=== PATIENT | female | born 1955 | race Caucasian/White ===

== ENCOUNTER 2017-08-30 21:01 | Emergency (ER) | payer OTHER, SELFPAY ==
[2017-08-30 21:02] VITALS: BP 101/52; PULSE 215; RESP 16; TEMP 36.5; O2SAT 93; BMI 27.9
[2017-08-30] MEDS: Adenosine 6 MG/2 ML Syringe IV (21:15)
[2017-08-30 21:17] VITALS: BP 115/61; PULSE 91; RESP 13; O2SAT 97
--- NOTE | 2017-08-30 21:26 | EKG12_ITS ---
Test Reason : CP Blood Pressure : / mmHG Vent. Rate : 188 BPM Atrial Rate : 208 BPM P-R Int : 000 ms QRS Dur : 096 ms QT Int : 234 ms P-R-T Axes : 000 -08 106 degrees QTc Int : 414 ms Supraventricular tachycardia Marked ST abnormality, possible lateral subendocardial injury Abnormal ECG Confirmed by LAST TORRES, CARLOS ([id number]), graphics editor ALESSIO SPEAR ([id number]) on 09/02/2017 3:49:44 PM Referred By: LALO Confirmed By:CARLOS NI MD
--- NOTE | 2017-08-30 21:27 | EKG12_ITS ---
Test Reason : CP Blood Pressure : / mmHG Vent. Rate : 083 BPM Atrial Rate : 083 BPM P-R Int : 146 ms QRS Dur : 084 ms QT Int : 378 ms P-R-T Axes : 064 -12 032 degrees QTc Int : 444 ms Normal sinus rhythm Normal ECG Confirmed by CARLOS NI MD ([id number]), purchasing expeditor ALESSIO SPEAR ([id number]) on 09/02/2017 3:50:04 PM Referred By: LALO Confirmed By:CARLOS NI MD
[2017-08-30 21:31] VITALS: O2SAT 98
--- NOTE | 2017-08-30 21:32 | RAD_ITS ---
STUDY: X-RAY CHEST REASON FOR EXAM: Female, 62 years old. Dizziness. Chest tightness. TECHNIQUE: Single AP portable view of the chest. COMPARISON: 10/16/16. FINDINGS: The lungs are clear and expanded. There is no demonstrated pleural abnormality. Normal size heart. Normal mediastinum and lisandra. Normal visualized pulmonary arteries. Normal visualized aortic arch and descending thoracic aorta. Normal visualized thoracic spine. Normal visualized ribs, clavicles, and shoulders. There is no demonstrated abnormality of the visualized soft tissue structures of the upper abdomen. RAD/Chest 1 View (Portable) IMPRESSION: Normal x-ray examination of the chest. Electronically Signed: Walter Giron MD at 22:00 EST , Service support ,
[2017-08-30] MEDS: 0.9% Normal Saline 1,000 ML 1000 ML IV (21:38)
[2017-08-30] MEDS: Aspirin 81 MG TAB.CHEW 324 MG PO (21:39)
[2017-08-30 21:46] LABS: Absolute Lymphocyte Count 3.82 X10^3/ul (0.83-4.51); Absolute Neutrophil Count 3.4 X10^3/uL (2.0-7.7); Basophil# 0.06 X10^3/uL; Basophil% 0.7 % (0-1); Eosinophils% 4.7 % (0-5); Hematocrit 42.3 % (37-47); Hemoglobin 15.2 g/dl (12.0-15.0); Lymphocyte # 3.82 X10^3/ul (4.0); Lymphocyte % 45.2 % (19-41); Mean Corp Hgb Conc 35.9 g/gl (32-36); Mean Corpuscular Hgb 33.7 pg (27.0-32.0); Mean Corpuscular Volume 93.8 fL (81-99); Mean Platelet Vol. 10.2 fl (6.2-12.0); Monocyte# 0.72 X10^3/uL; Monocyte% 8.5 % (0-10); Neutrophil # 3.44 X10^3/uL (2.7-7.7); Neutrophil % 40.8 % (47-70); Platelet Count 291 K/mm3 (150-450); RBC Distribution Width CV 12.8 % (11.6-14.6); Red Blood Count 4.51 M/mm3 (4.2-5.4); White Blood Count 8.5 K/mm3 (4.4-11.0)
[2017-08-30 21:56] LABS: POSITIVE COUNT NO; POSITIVE DIFFERENTIAL NO; POSITIVE MORPHOLOGY NO
[2017-08-30 21:58] LABS: Anion Gap 13 (5-15); BUN 14 mg/dL (7-18); BUN/Creat Ratio 15.9 RATIO (10-20); Chloride 105 mmol/L (98-107); Creatinine, Serum 0.88 mg/dL (0.55-1.02); EST Glomerular Filtration Rate 69 mL/min (>60); Est Glom Filt Rate - Afr Amer 84 mL/min (>60); Estimated Creatinine Clearance 54.13 ml/min; Glucose 118 mg/dL (74-106); Potassium 3.5 mmol/L (3.5-5.1); Sodium Level 143 mmol/L (136-145)
[2017-08-30 22:01] VITALS: BP 120/75; PULSE 85; RESP 18; O2SAT 97
--- NOTE | 2017-08-30 22:11 | ED.VISSUMM ---
- ER Visit Summary Date of Service: 08/30/17 Chief Complaint: [] Palpitations History of Present Illness: The patient is a 62 F [] complaining of palpitations beginning while eating dinner. Patient reports a previous history of SVT. She presents on the monitor with a heart rate of 200. She denies chest pain. Reports slight dizziness. No other complaints at this time. Physical Examination: [] Afebrile, tachycardic with a rate in the 200s. Lungs are clear to auscultation. Abdomen is soft and nontender. No lower extremity edema. Test Results: [] Chest x-ray: Negative EKG #1 normal sinus rhythm with a rate in the 190s. EKG #2 normal sinus rhythm rate of 83. No ischemic changes or ectopy. Normal intervals. CBC, BMP, troponin within normal limits. Emergency Department Course and Treatment: [] Patient immediately evaluated by emergency department physician and nursing staff. Placed on surveillance system monitor, oxygen, intravenous line placed. Patient provided 6 mg of intravenous adenosine. Patient was chemically cardioverted successfully. She was observed for approximately 2 hours without recurrence of the SVT. At this time with a normal workup and a short episode of SVT I feel the patient is a good candidate for outpatient follow-up. Patient is amenable to discharge at this time. Treatment Plan: [] Discharge with PCP follow-up. Disposition: [] Discharge, stable. Impression: [] SVT Chemical cardioversion by ED physician This note was generated with [employer] dictation software. It may contain incorrect words, spelling, and punctuation that were not noted in review of the chart prior to signing ED Disposition - Plan for ED Patient: Chief Complaint: Chest Pain Referrals: Care Physician,No Primary [Primary Care Provider] -
--- NOTE | 2017-08-30 22:14 | ED.DCSUM_ITS ---
- ER Visit Summary Date of Service: 08/30/17 Chief Complaint: [] Palpitations History of Present Illness: The patient is a 62 F [] complaining of palpitations beginning while eating dinner. Patient reports a previous history of SVT. She presents on the monitor with a heart rate of 200. She denies chest pain. Reports slight dizziness. No other complaints at this time. Physical Examination: [] Afebrile, tachycardic with a rate in the 200s. Lungs are clear to auscultation. Abdomen is soft and nontender. No lower extremity edema. Test Results: [] Chest x-ray: Negative EKG #1 normal sinus rhythm with a rate in the 190s. EKG #2 normal sinus rhythm rate of 83. No ischemic changes or ectopy. Normal intervals. CBC, BMP, troponin within normal limits. Emergency Department Course and Treatment: [] Patient immediately evaluated by emergency department physician and nursing staff. Placed on athletic monitor, oxygen, intravenous line placed. Patient provided 6 mg of intravenous adenosine. Patient was chemically cardioverted successfully. She was observed for approximately 2 hours without recurrence of the SVT. At this time with a normal workup and a short episode of SVT I feel the patient is a good candidate for outpatient follow-up. Patient is amenable to discharge at this time. Treatment Plan: [] Discharge with PCP follow-up. Disposition: [] Discharge, stable. Impression: [] SVT Chemical cardioversion by ED physician This note was generated with [employer] dictation software. It may contain incorrect words, spelling, and punctuation that were not noted in review of the chart prior to signing ED Disposition - Plan for ED Patient: Chief Complaint: Chest Pain Referrals: Care Physician,No Primary [Primary Care Provider] -
--- NOTE | 2017-08-30 22:14 | ED.DEP ---
ED Disposition - Plan for ED Patient: Disposition: Home or Assisted Living Chief Complaint: Chest Pain Instructions: ED Tachycardia Pat PSVT Referrals: Care Physician,No Primary [Primary Care Provider] - Dylon Arguello MD [STAFF PHYSICIAN] -
[2017-08-30 22:31] VITALS: BP 127/84; PULSE 81; RESP 17; O2SAT 98
--- NOTE | 2017-08-30 22:32 | ED.RN ---
REVIEWED D/C INSTRUCTIONS, FOLLOW UP CARE, AND S/S THAT WOULD WARRANT A RETURN TO THE ED WITH PT. PT VERBALIZED AN UNDERSTANDING AND DENIES QUESTIONS FOR THIS RN. PT SKIN P/W/D, RESP EVEN AND UNLABORED, PT A&O X 3, NO DISTRESS NOTED. PT AMBULATED OUT OF ED, GAIT STEADY.
== END 2017-08-30 22:33 | disposition home or self-care (01) ==
PROVIDERS: Emergency Provider Emergency Medicine
DX: I47.1 Supraventricular tachycardia (principal); I10 Essential (primary) hypertension; K21.9 Gastro-esophageal reflux disease without esophagitis; F32.9 Major depressive disorder, single episode, unspecified; F41.9 Anxiety disorder, unspecified; Z79.899 Other long term (current) drug therapy
CPT/HCPCS: 71045; 80048; 84484; 85025; 93005; 96361; 96374; 99285; J7030; A4216; J0153

== ENCOUNTER → 2017-09-29 13:02 | Outpatient (CLI) | payer OTHER, SELFPAY ==
--- NOTE | 2017-09-29 13:04 | ECHOD_ITS ---
Reason For Study: Arrhythmia Procedure This was a 2D Doppler, Color Flow transthoracic echocardiogram. Exam performed in department. Left Ventricle Normal size and thickness. The estimated ejection fraction is 65 %. Stage 1 diastolic dysfunction. No regional wall motion abnormalities noted. Right Ventricle Normal size and thickness. Normal systolic function. Atria Normal left atrium. Normal right atrium. Normal atrial septum. Mitral Valve The mitral valve is structurally normal. No prolapse or stenosis seen. Tricuspid Valve Normal tricuspid valve. Mild (1+) tricuspid valve insufficiency. Right ventricular systolic pressure estimated to be 28 mmHg. Aortic Valve Trisinus/trileaflet aortic valve. Normal aortic valve. Pulmonic Valve Normal pulmonic valve. Trivial pulmonic valve insufficiency. Great Vessels Normal aortic root. Normal arch. Normal inferior vena cava. Inferior vena cava collapse with sniff. Pericardium/Pleural No pericardial effusion. MMode/2D Measurements & Calculations LVIDd: 3.8 cm IVSd: 0.90 cm Ao root diam: 2.7 cm LVIDs: 2.4 cm LVPWd: 0.78 cm LA dimension: 3.8 cm RVDd: 3.6 cm FS: 36.9 % LAV(MOD-bp): 27.8 ml LA A4 area: 11.6 cm2 RA A4 area: 8.1 cm2 LAV(MOD-bp) Indexed: 16.2 ml/m2 LAV(MOD-sp2): 33.6 ml LAV(MOD-sp4): 24.0 ml Doppler Measurements & Calculations MV E max kaiden: 65.9 cm/sec Lat Peak E' Kaiden: 6.3 cm/sec Med Peak E' Kaiden: 5.1 cm/sec MV A max kaiden: 91.8 cm/sec E/E' lat: 10.5 E/E' med: 12.9 MV E/A: 0.72 Ao V2 max: 137.7 cm/sec LV V1 max: 108.3 cm/sec PA V2 max: 81.7 cm/sec Ao max P.6 mmHg LV V1 max P.7 mmHg Ao V2 mean: 97.2 cm/sec Ao mean P.2 mmHg Ao V2 VTI: 28.6 cm TR max kaiden: 226.3 cm/sec TR max P.5 mmHg Interpretation Summary The estimated ejection fraction is 65 %. Stage 1 diastolic dysfunction. Mild (1+) tricuspid valve insufficiency. Right ventricular systolic pressure estimated to be 28 mmHg. There is no comparison study available. Ordering Physician: Dylon Arguello Referring Physician: Dylon Arguello Performed By: Chana Alicea, KAHLIL, RVT
== END ==
PROVIDERS: Visit Provider Internal Medicine Cardiovascular Disease
DX: I47.1 Supraventricular tachycardia (principal); R00.2 Palpitations
CPT/HCPCS: 93306

== ENCOUNTER → 2018-08-06 09:39 | Outpatient (CLI) | payer OTHER, SELFPAY ==
--- NOTE | 2018-08-06 09:42 | RAD_ITS ---
STUDY: AIR-CONTRAST UPPER GI SERIES. REASON FOR EXAM: Female, 63 years old. Worsening gastroesophageal reflux. FLUOROSCOPY TIME (if supplied): (1:17) minutes/seconds. 20 images were obtained. TECHNIQUE: The patient ingested barium. Multiple images of the esophagus, stomach and duodenum were obtained. COMPARISON: None. FINDINGS: The esophagus is unremarkable. There is no evidence of esophageal reflux. No mass lesion or obstruction is seen. The stomach and duodenum are unremarkable. There is no evidence of ulceration. No mass lesions present. RAD/Upper GI Series Only IMPRESSION: Unremarkable air contrast upper GI series. Electronically Signed: Arnol Richardson MD at 10:25 EST , Service support ,
== END ==
PROVIDERS: Family Provider Internal Medicine; PCP Internal Medicine; Referring Provider Internal Medicine Gastroenterology; Visit Provider Internal Medicine Gastroenterology
DX: K21.9 Gastro-esophageal reflux disease without esophagitis (principal)
CPT/HCPCS: 74246

== ENCOUNTER → 2019-05-25 13:06 | Outpatient (CLI) | payer MEDICARE, OTHER, SELFPAY ==
[2019-05-13 13:47] VITALS: BMI 29.2
--- NOTE | 2019-05-25 13:07 | ECHOD_ITS ---
Reason For Study: valve replacement - eval Procedure This was a 2D Doppler, Color Flow transthoracic echocardiogram. Exam performed in department. Left Ventricle Normal size and thickness. The estimated ejection fraction is 65 %. Stage 1 diastolic dysfunction. No regional wall motion abnormalities noted. Right Ventricle Normal size and thickness. Normal systolic function. Atria Normal left atrium. Normal right atrium. Normal atrial septum. Mitral Valve The mitral valve is structurally normal. No prolapse or stenosis seen. Tricuspid Valve Normal tricuspid valve. Mild (1+) tricuspid valve insufficiency. Right ventricular systolic pressure estimated to be 24 mmHg. Aortic Valve Normal aortic valve. Trisinus/trileaflet aortic valve. Pulmonic Valve Normal pulmonic valve. Trivial pulmonic valve insufficiency. Great Vessels Normal aortic root. Normal arch. Normal inferior vena cava. Inferior vena cava collapse with sniff. Pericardium/Pleural No pericardial effusion. MMode/2D Measurements & Calculations LVIDd: 3.7 cm IVSd: 0.97 cm Ao root diam: 2.8 cm LVIDs: 2.2 cm LVPWd: 0.89 cm RVDd: 3.1 cm FS: 39.5 % LAV(MOD-bp): 31.7 ml LA A4 area: 11.9 cm2 LA dimension(2D): 3.3 cm LAV(MOD-bp) Indexed: 18.6 ml/m2 LAV(MOD-sp2): 33.9 ml LAV(MOD-sp4): 26.6 ml RA A4 area: 11.5 cm2 Time Measurements MV dec time: 0.17 sec Doppler Measurements & Calculations MV E max kaiden: 64.4 cm/sec Lat Peak E' Kaiden: 5.3 cm/sec Med Peak E' Kaiden: 3.5 cm/sec MV A max kaiden: 81.3 cm/sec E/E' lat: 12.2 E/E' med: 18.1 MV E/A: 0.79 Ao V2 max: 97.0 cm/sec LV V1 max: 93.5 cm/sec PA V2 max: 68.2 cm/sec Ao max P.8 mmHg LV V1 max P.5 mmHg TR max kaiden: 209.0 cm/sec TR max P.5 mmHg Interpretation Summary The estimated ejection fraction is 65 %. Stage 1 diastolic dysfunction. Mild (1+) tricuspid valve insufficiency. Right ventricular systolic pressure estimated to be 24 mmHg. Compared to echo report dated 09/29/2017, no apprecible changes noted. Ordering Physician: Dylon Arguello Referring Physician: Gladys Max Performed By: Leann Treviño, KAHLIL, RVT
== END ==
PROVIDERS: Family Provider Internal Medicine; PCP Internal Medicine; Referring Provider Internal Medicine Cardiovascular Disease; Visit Provider Internal Medicine Cardiovascular Disease
DX: Z95.2 Presence of prosthetic heart valve (principal); Z98.890 Other specified postprocedural states
CPT/HCPCS: 93306

== ENCOUNTER 2019-05-26 15:05 | Emergency (ER) | payer MEDICARE, OTHER, SELFPAY ==
[2019-05-13 13:47] VITALS: BMI 29.2
[2019-05-26 15:06] VITALS: BP 119/73; PULSE 170; RESP 30; TEMP 36.4; O2SAT 99; BMI 30.4
[2019-05-26] MEDS: Adenosine 6 MG/2 ML Syringe IV (15:10)
[2019-05-26 15:11] VITALS: BP 139/76; PULSE 102; RESP 16; O2SAT 99
--- NOTE | 2019-05-26 15:14 | ED.DCSUM_ITS ---
- ER Visit Summary Date of Service: 05/26/19 Chief Complaint: Increased heart rate, chest pain History of Present Illness: The patient is a 64 F who complains of chest pressure and increased heart rate. She states it started suddenly today. She does have a history of SVT in the past. She is currently on 120 mg of verapamil a day. She feels a pressure in the middle part of her chest. Does not radiate. No shortness of breath. She does feel lightheaded. She states that she did have a normal echocardiogram recently. Physical Examination: Vital signs reviewed. HEENT exam unremarkable. Heart is very tachycardic and regular rhythm without murmurs. Lungs are clear to auscult ation. Abdomen is soft and nontender. Extremities reveal no edema. Peripheral pulses are equal. Skin exam normal. Neurologic exam normal. Test Results: EKG was SVT with a rate of 187. There is nonspecific changes associated with this. Hemoglobin 15.8, glucose 122. Magnesium normal. Troponin 0 0.019. Emergency Department Course and Treatment: Patient was given 6 mg of adenosine fast IV push. She converted to normal sinus rhythm and remained in a sinus rhythm. I spoke with Dr. Arguello, her online content developer. He recommended increasing her verapamil to 180 mg daily. He will see her in follow-up. Treatment Plan: [] Disposition: Discharge Impression: SVT This note was generated with [employer] dictation software. It may contain incorrect words, spelling, and punctuation that were not noted in review of the chart prior to signing ED Disposition - Plan for ED Patient: Referrals: Gladys Max MD [Primary Care Provider] -
--- NOTE | 2019-05-26 15:15 | EKG12_ITS ---
Test Reason : SVT Blood Pressure : / mmHG Vent. Rate : 111 BPM Atrial Rate : 111 BPM P-R Int : 138 ms QRS Dur : 076 ms QT Int : 320 ms P-R-T Axes : 069 -17 081 degrees QTc Int : 435 ms Sinus tachycardia Nonspecific ST and T wave abnormality Abnormal ECG Confirmed by LAST TORRES, CARLOS ([id number]), manager editorial ALESSIO SPEAR ([id number]) on 05/28/2019 10:59:09 AM Referred By: Dylon Arguello Confirmed By:CARLOS NI MD
--- NOTE | 2019-05-26 15:22 | EKG12_ITS ---
Test Reason : SVT Blood Pressure : / mmHG Vent. Rate : 187 BPM Atrial Rate : 182 BPM P-R Int : 000 ms QRS Dur : 098 ms QT Int : 238 ms P-R-T Axes : 000 -17 093 degrees QTc Int : 420 ms Supraventricular tachycardia Marked ST abnormality, possible lateral subendocardial injury Abnormal ECG Confirmed by LAST TORRES, CARLOS ([id number]), business editor ALESSIO SPEAR ([id number]) on 05/28/2019 10:59:31 AM Referred By: Dylon Arguello Confirmed By:CARLOS NI MD
[2019-05-26 15:45] LABS: Absolute Lymphocyte Count 3.06 X10^3/uL (0.83-4.51); Absolute Neutrophil Count 4.5 X10^3/uL (2.0-7.7); Basophil# 0.12 X10^3/uL; Basophil% 1.3 % (0-1); Eosinophil# 0.33 X10^3/uL; Eosinophils% 3.7 % (0-5); Hematocrit 45.7 % (37-47); Hemoglobin 15.8 g/dL (12.0-15.0); Lymphocyte # 3.06 X10^3/ul (4.0); Lymphocyte % 34.3 % (19-41); Mean Corp Hgb Conc 34.6 g/dL (32-36); Mean Corpuscular Hgb 32.5 pg (27.0-32.0); Mean Platelet Vol. 10.2 fl (6.2-12.0); Monocyte# 0.93 X10^3/uL; Monocyte% 10.4 % (0-10); NRBC Flagged by Analyzer 0 % (0-5); Neutrophil # 4.45 X10^3/uL (2.7-7.7); Platelet Count 321 K/mm3 (150-450); RBC Distribution Width SD 41.8 fl (35.1-43.9); Red Blood Count 4.86 M/mm3 (4.2-5.4); White Blood Count 8.9 K/mm3 (4.4-11.0)
[2019-05-26 16:14] VITALS: BP 120/81; PULSE 91; RESP 18; O2SAT 94
[2019-05-26 16:22] LABS: Anion Gap 11 (5-15); BUN 15 mg/dL (7-18); BUN/Creat Ratio 15.2 RATIO (10-20); Calcium,Total 9.5 mg/dL (8.5-10.1); Chloride 106 mmol/L (98-107); Creatinine, Serum 0.99 mg/dL (0.55-1.02); EST Glomerular Filtration Rate 60 mL/min (>60); Est Glom Filt Rate - Afr Amer 72 mL/min (>60); Estimated Creatinine Clearance 42.75 ml/min; Glucose 122 mg/dL (74-106); Magnesium 1.9 mg/dL (1.6-2.6); Potassium 3.8 mmol/L (3.5-5.1); Sodium Level 141 mmol/L (136-145)
--- NOTE | 2019-05-26 16:31 | ED.DEP ---
ED Disposition - Plan for ED Patient: Disposition: Home or Assisted Living Instructions: Palpitations Prescriptions: Verapamil HCl [Verapamil ER] 180 mg PO DAILY #30 [id number] Prescription Printed Referrals: Gladys Max MD [Primary Care Provider] -
[2019-05-26 16:41] VITALS: BP 120/82; PULSE 87; RESP 15; O2SAT 95
== END 2019-05-26 16:50 | disposition home or self-care (01) ==
PROVIDERS: Emergency Provider Emergency Medicine; Family Provider Internal Medicine; PCP Internal Medicine
DX: I47.1 Supraventricular tachycardia (principal); I10 Essential (primary) hypertension; K21.9 Gastro-esophageal reflux disease without esophagitis; Z79.899 Other long term (current) drug therapy
CPT/HCPCS: 80048; 83735; 84484; 85025; 92960; 93005; 96374; 99285; J7030; A4216; J0153

== ENCOUNTER 2019-07-29 18:32 | Emergency (ER) | payer MEDICARE, OTHER, SELFPAY ==
[2019-06-18 11:20] VITALS: BMI 29.2
[2019-07-29 18:33] VITALS: BP 107/63; PULSE 169; RESP 24; TEMP 36.1; O2SAT 100; BMI 29.2
--- NOTE | 2019-07-29 19:02 | EKG12_ITS ---
Test Reason : REPEAT Blood Pressure : / mmHG Vent. Rate : 102 BPM Atrial Rate : 102 BPM P-R Int : 134 ms QRS Dur : 072 ms QT Int : 332 ms P-R-T Axes : 056 -22 012 degrees QTc Int : 432 ms Sinus tachycardia Moderate voltage criteria for LVH, may be normal variant Borderline ECG Confirmed by JEREMIAS TORRES, MARKUS ([id number]), story editor JAY HUDSON ([id number]) on 08/03/2019 8:06:44 AM Referred By: DR. MONTES Confirmed By:MARKUS MCDOWELL MD
[2019-07-29 19:15] LABS: Absolute Lymphocyte Count 3.07 X10^3/uL (0.83-4.51); Absolute Neutrophil Count 8.8 X10^3/uL (2.0-7.7); Basophil% 0.7 % (0-1); Eosinophil# 0.34 X10^3/uL; Eosinophils% 2.5 % (0-5); Hematocrit 46.6 % (37-47); Lymphocyte # 3.07 X10^3/ul (4.0); Mean Corp Hgb Conc 34.3 g/dL (32-36); Mean Corpuscular Hgb 31.7 pg (27.0-32.0); Mean Corpuscular Volume 92.3 fL (81-99); Mean Platelet Vol. 10.2 fl (6.2-12.0); Monocyte# 0.96 X10^3/uL; Monocyte% 7.2 % (0-10); NRBC Flagged by Analyzer 0 % (0-5); Neutrophil # 8.81 X10^3/uL (2.7-7.7); Neutrophil % 66.2 % (47-70); Platelet Count 317 K/mm3 (150-450); RBC Distribution Width CV 12.3 % (11.6-14.6); RBC Distribution Width SD 41.9 fl (35.1-43.9); Red Blood Count 5.05 M/mm3 (4.2-5.4); White Blood Count 13.3 K/mm3 (4.4-11.0)
[2019-07-29] MEDS: Adenosine 6 MG/2 ML Syringe 12 MG IV (19:17)
[2019-07-29] MEDS: Aspirin 81 MG TAB.CHEW 324 MG PO (19:21)
--- NOTE | 2019-07-29 19:21 | ED.VISSUMM ---
- ER Visit Summary Date of Service: 07/29/19 Chief Complaint: Palpitations History of Present Illness: The patient is a 64 F with palpitations. Patient states she felt herself going to [facility] around 4:15 PM. She tried to use cold water on her face and tried to bear down. She continued to have palpitations and presented to the ED. She has history of previous SVT. She stopped diltiazem 1 week ago at the direction of her laboratory administrative director. She had an ablation on Friday at [facility]. She denies chest pain or shortness of breath. Denies other complaints. Physical Examination: Vitals are stable. Heart rate 169. Patient is afebrile. Alert no acute distress. HEENT exam is unremarkable. Neck is supple. Lungs are clear and equal bilaterally. Heart is regular tachycardia Abdomen is soft nontender nondistended. Extremities are unremarkable. Skin is warm and dry. No focal neurologic deficit. Remainder of exam is unremarkable. Emergency Department Course and Treatment: EKG SVT rate of 157. She was given adenosine IV. She converted to sinus tachycardia with a rate of 110. She feels improved. CBC shows white count 13.3. Chemistries show glucose 116. Troponin 0.40. Chest x-ray shows no acute process. Repeat troponin 0.613. Patient is feeling improved in the ED. Discussed with on-call cardiology at [facility]. Recommends admission to hospitalist service. Discussed with [facility] for transfer. Disposition: Transfer [facility] Impression: SVT, elevated troponin This note was generated with [employer] dictation software. It may contain incorrect words, spelling, and punctuation that were not noted in review of the chart prior to signing ED Disposition - Plan for ED Patient: Referrals: Gladys Max MD [Primary Care Provider] -
--- NOTE | 2019-07-29 19:24 | EKG12_ITS ---
Test Reason : CP Blood Pressure : / mmHG Vent. Rate : 157 BPM Atrial Rate : 159 BPM P-R Int : 000 ms QRS Dur : 130 ms QT Int : 282 ms P-R-T Axes : 000 -32 042 degrees QTc Int : 455 ms Poor data quality, interpretation may be adversely affected SVT with retrograde T waves Left axis deviation Left ventricular hypertrophy with QRS widening Abnormal ECG Confirmed by EMILY CHILDERS ([id number]), electronic news gathering editor JAY HUDSON ([id number]) on 08/06/2019 9:48:40 AM Referred By: GIORGI BREWER Confirmed By:EMILY CHILDERS
--- NOTE | 2019-07-29 19:25 | RAD_ITS ---
STUDY: X-RAY CHEST REASON FOR EXAM: Female, 64 years old. H/O SVT, ABLATION FRIDAY, HEART RATE IN THE 170S AT HOME. CHEST DISCOMFORT, SOB, ANXIOUS TECHNIQUE: 1 view COMPARISON: Prior chest radiograph of August 30, 2017 FINDINGS: The lungs are clear and expanded. There is no demonstrated pleural abnormality. Normal size heart. Calcified left hilar lymph nodes. Normal visualized pulmonary arteries. Normal visualized aortic arch and descending thoracic aorta. Normal visualized thoracic spine. Normal visualized ribs, clavicles, and shoulders. There is no demonstrated abnormality of the visualized soft tissue structures of the upper abdomen. RAD/Chest 1 View (Portable) IMPRESSION: No acute cardiopulmonary findings or changes. Negative for consolidation, atelectasis, pleural effusion or cardiomegaly. Electronically Signed: Kat Gauthier MD at 19:41 EST , Service support ,
[2019-07-29 19:33] LABS: Anion Gap 5 (5-15); BUN 9 mg/dL (7-18); BUN/Creat Ratio 11.1 RATIO (10-20); Calcium,Total 10.2 mg/dL (8.5-10.1); Chloride 107 mmol/L (98-107); Creatinine, Serum 0.81 mg/dL (0.55-1.02); EST Glomerular Filtration Rate 75 mL/min (>60); Est Glom Filt Rate - Afr Amer 91 mL/min (>60); Estimated Creatinine Clearance 52.25 ml/min; Glucose 116 mg/dL (74-106); Potassium 3.8 mmol/L (3.5-5.1); Sodium Level 140 mmol/L (136-145)
[2019-07-29 19:39] VITALS: BP 134/67; PULSE 103; RESP 21; O2SAT 100
[2019-07-29 20:00] VITALS: BP 135/62; PULSE 90; RESP 16; O2SAT 97
[2019-07-29 21:00] VITALS: BP 125/70; PULSE 89; RESP 18; O2SAT 97
[2019-07-29 22:00] VITALS: BP 124/61; PULSE 86; RESP 16; O2SAT 97
[2019-07-29 23:00] VITALS: BP 133/74; PULSE 86; RESP 16; O2SAT 97
[2019-07-30 00:09] VITALS: BP 136/74; PULSE 80; RESP 16; TEMP 36.6
== END 2019-07-30 00:37 | disposition short-term general hospital (02) ==
LOC: ED 19:08
PROVIDERS: Emergency Provider Emergency Medicine; PCP Internal Medicine
DX: I47.1 Supraventricular tachycardia (principal); R00.2 Palpitations; K21.9 Gastro-esophageal reflux disease without esophagitis; F32.9 Major depressive disorder, single episode, unspecified; Z79.899 Other long term (current) drug therapy; R79.89 Other specified abnormal findings of blood chemistry
CPT/HCPCS: 71045; 80048; 84484; 85025; 93005; 96374; 99285; J7030; J0153

== ENCOUNTER 2019-08-10 15:59 | Emergency (ER) | payer MEDICARE, OTHER, SELFPAY ==
[2019-08-10 16:01] VITALS: BP 111/72; PULSE 80; RESP 20; TEMP 36.9; O2SAT 95; BMI 28.5
--- NOTE | 2019-08-10 16:07 | CT_ITS ---
STUDY: CTA CHEST REASON FOR EXAM: Female, 64 years old. PE- sob and chest tightness x 2 weeks. S/P heart ablation 02/2019 RADIATION DOSAGE (If Supplied By Facility): CTDIvol = ( 14.65 ) mGy, DLP = ( 439.97 ) mGycm TECHNIQUE: The examination was performed with the intravenous administration of 100 ML isovue 370. Post-processing of the angiographic images was performed, with multiplanar reformation and 3D reconstruction. Individualized dose optimization techniques were used for this CT. COMPARISON: None. FINDINGS: Normal enhancement of the main pulmonary artery and right and left pulmonary arteries. Normal enhancement of the bilateral peripheral pulmonary arteries. There is no demonstrated pulmonary embolism. Normal thoracic aorta and visualized great vessels. There is no demonstrated aortic dissection. Mild cardiomegaly. Normal pericardium Normal mediastinum. Normal hilar regions. Normal visualized trachea and bronchi. The lungs are well expanded. Normal pulmonary parenchyma. Normal pleura. No consolidation or effusion Normal chest wall structures. There are degenerative changes of thoracic spine. Liver cyst, nonenhancing. Otherwise unremarkable abdomen CT/CTA Chest W/WO Contrast IMPRESSION: Normal CTA chest examination, without a demonstrated pulmonary embolism or arterial dissection. Lungs are essentially clear Electronically Signed: Livan Mock DO at 17:31 EST Tel , Service support ,
--- NOTE | 2019-08-10 16:07 | EKG12_ITS ---
Test Reason : CP Blood Pressure : / mmHG Vent. Rate : 079 BPM Atrial Rate : 079 BPM P-R Int : 132 ms QRS Dur : 072 ms QT Int : 396 ms P-R-T Axes : 056 -24 029 degrees QTc Int : 454 ms Normal sinus rhythm Moderate voltage criteria for LVH, may be normal variant Borderline ECG Confirmed by EMILY CHILDERS ([id number]), managing editor ALESSIO SPEAR ([id number]) on 08/12/2019 3:17:51 PM Referred By: LILY Confirmed By:EMILY CHILDERS
--- NOTE | 2019-08-10 16:07 | RAD_ITS ---
STUDY: X-RAY CHEST REASON FOR EXAM: Female, 64 years old. PT SENT IN BY [facility], REPORTS CHEST TIGHTNESS, SOB, FATIGUE X 2 WEEKS. STATUS POST SVT ABLATION AT [facility] 2 WEEKS AGO. TECHNIQUE: Single AP portable view of the chest. COMPARISON: July 29, 2019 FINDINGS: Stable calcified left hilar lymph nodes The lungs are clear and expanded. There is no demonstrated pleural abnormality. Normal size heart. Normal mediastinum and lisandra. Normal visualized pulmonary arteries. Normal visualized aortic arch and descending thoracic aorta. Normal visualized thoracic spine. Normal visualized ribs, clavicles, and shoulders. There is no demonstrated abnormality of the visualized soft tissue structures of the upper abdomen. RAD/Chest 1 View (Portable) IMPRESSION: Normal x-ray examination of the chest. Electronically Signed: Livan Mock DO at 16:57 EST Tel , Service support ,
--- NOTE | 2019-08-10 16:09 | ED.DCSUM_ITS ---
History of Present Illness Chief Complaint: Chest Pain Onset: Days Context: Gradual Onset Timing: Intermittent Current Severity: Moderate Maximum Severity: Moderate Narrative: The patient presents to the emergency department chest tightness, shortness of breath, and generalized malaise. The patient has a history of hypertension and SVT. She underwent ablation 2 weeks ago at [facility]. Her postoperative course was complicated by another episode of SVT. She was restarted on her diltiazem. She states since then, she has been having intermittent chest tightness. She states is not really pain, but she would just get pressure in her chest and feel like she cannot catch her breath. She states it will come and go. She is unsure if she is had orthopnea. She denies cough. She denies any fevers or chills. Patient has no history of coronary vascular disease. She states she did have a stress test in 2017. Prior similar symptoms: No Recent Illness/Hospitalization: Yes Past Medical History - Allergies and Home Meds Allergies/Adverse Reactions: Allergies verapamil Adverse Reaction (Verified 08/10/19 16:00) dizziness Primary Care Physician: Gladys Max MD [Primary Care Provider] - Prior records reviewed: Yes Past Medical History: - - Hypertension, SVT Surgical History: - - Cardiac ablation Smoking Status: Never smoker Review of Systems General: Denies: Chills, Fever, Sweats Eyes: Denies: Visual changes - bilaterally, Diplopia ENT: Denies: Rhinorrhea, Sore throat Cardiovascular: Reports: Chest pain. Denies: Palpitations Respiratory: Reports: Dyspnea. Denies: Cough, Dyspnea on exertion Gastrointestinal: Denies: Abdominal pain, Nausea, Vomiting, Diarrhea, Melena, Hematochezia Genitourinary: Denies: Dysuria, Hematuria, Frequency Musculoskeletal: Denies: Back pain, Extremity Pain Skin: Denies: Rash, Wounds Neurological: Denies: Headache, Weakness, Numbness Physical Exam Vital Signs/Narrative: Vital Signs Temp Pulse Resp BP Pulse Ox 08/10/19 16:01 98.5 F 80 20 H 111/72 95 Inital Vital Signs reviewed: Yes General: Well nourished, Well developed, No Acute Distress Head: Normocephalic, Atraumatic Eyes: Perrl, EOMI ENT: Moist mucous membranes, No rhinorrhea Neck: Supple, Nontender Cardiovascular: Regular rate, Regular rhythm, No murmurs Respiratory: No distress, CTA bilaterally, Chest nontender Abdomen: Soft, Nontender, Nondistended, Normal bowel sounds Back: Nontender, Normal Inspection Extremities: Nontender, No edema Skin: Normal color, No rash Neurological: Alert, Oriented x3, Cranial nerves II-XII grossly intact, Normal Strength, Normal Sensation Psychological: Normal affect, Normal Mood Diagnostic/Tx/Re-eval Clinical Impression(s) from Imaging Studies Chest CTA 08/10/19 16:07 IMPRESSION: Normal CTA chest examination, without a demonstrated pulmonary embolism or arterial dissection. Lungs are essentially clear Electronically Signed: Livan MockDO at 17:31 EST Tel , Service support , Chest X-Ray 08/10/19 16:07 IMPRESSION: Normal x-ray examination of the chest. Electronically Signed: Livan MockDO at 16:57 EST Tel , Service support , Abnormal Lab Results 08/10/19 08/10/19 08/10/19 16:10 16:10 16:10 WBC 7.2 RBC 4.32 Hgb 13.5 Hct 39.3 MCV 91.0 MCH 31.3 MCHC 34.4 RDW Std Deviation 40.1 RDW Coeff of Ryann 12.0 Plt Count 301 MPV 9.7 Immature Gran % (Auto) 0.100 Neut % (Auto) 58.6 Lymph % (Auto) 31.1 [place] % (Auto) 5.9 Eos % (Auto) 3.2 Baso % (Auto) 1.1 H Absolute Neuts (auto) 4.2 Absolute Lymphs (auto) 2.25 Nucleated RBC % 0 Sodium 139 Potassium 3.5 Chloride 106 Carbon Dioxide 25.0 Anion Gap 8 BUN 15 Creatinine 0.76 Estim Creat Clear Calc 61.05 Est GFR (MDRD) Af Amer 99 Est GFR (MDRD) Non-Af 82 BUN/Creatinine Ratio 19.8 Glucose 123 H Calcium 9.3 Magnesium 2.3 Troponin I < 0.015 B-Natriuretic Peptide 54.1 - Medical Decision Making The patient presents with intermittent chest pain since her ablation. The pain does seem atypical. It is nonradiating. It is more the left side of her chest. It is not made worse with motion but she does complain of some pain with breathing. EKG was obtained on patient arrival. Was sinus rhythm without acute ischemic change. Was unchanged from prior. Metabolic work-up was pursued. Cardiac enzymes were negative. BNP was negative. X-ray shows no enlarged cardiac silhouette or pneumothorax. Given her pleuritic component with recent intervention, I did want to rule out pericardial effusion or pulmonary embolus. The patient underwent CTA which was unremarkable. She continues to have no pain while here. I did discuss her care with Dr. Arguello. Given her lack of coronary vascular disease history, negative cardiac enzymes, normal CTA, he is comfortable with following the patient as an outpatient. We will add an ESR as there may be a component of pericardial inflammation given her recent procedure. She will also be placed on scheduled Motrin. The patient is comfortable with this plan of care. She was counseled if her pain worsens or is not improving to return. She will be discharged home. Impression 1. Atypical chest pain ED Disposition - Plan for ED Patient: Instructions: CHEST PAIN, NonCardiac Referrals: Gladys Max MD [Primary Care Provider] - Additional Instructions: Start taking 600 mg of ibuprofen every 6 hours. Make sure to call cardiology office tomorrow for follow-up.
[2019-08-10 16:11] VITALS: O2SAT 96
[2019-08-10] MEDS: Aspirin 81 MG TAB.CHEW 324 MG PO (16:18)
[2019-08-10 16:37] LABS: Absolute Lymphocyte Count 2.25 X10^3/uL (0.83-4.51); Absolute Neutrophil Count 4.2 X10^3/uL (2.0-7.7); Basophil# 0.08 X10^3/uL; Basophil% 1.1 % (0-1); Eosinophil# 0.23 X10^3/uL; Eosinophils% 3.2 % (0-5); Hematocrit 39.3 % (37-47); Hemoglobin 13.5 g/dL (12.0-15.0); Lymphocyte # 2.25 X10^3/ul (4.0); Lymphocyte % 31.1 % (19-41); Mean Corp Hgb Conc 34.4 g/dL (32-36); Mean Corpuscular Hgb 31.3 pg (27.0-32.0); Mean Platelet Vol. 9.7 fl (6.2-12.0); Monocyte# 0.43 X10^3/uL; Monocyte% 5.9 % (0-10); NRBC Flagged by Analyzer 0 % (0-5); Neutrophil # 4.24 X10^3/uL (2.7-7.7); Neutrophil % 58.6 % (47-70); Platelet Count 301 K/mm3 (150-450); RBC Distribution Width SD 40.1 fl (35.1-43.9); Red Blood Count 4.32 M/mm3 (4.2-5.4); White Blood Count 7.2 K/mm3 (4.4-11.0)
[2019-08-10 16:46] LABS: Anion Gap 8 (5-15); BUN 15 mg/dL (7-18); BUN/Creat Ratio 19.8 RATIO (10-20); Calcium,Total 9.3 mg/dL (8.5-10.1); Chloride 106 mmol/L (98-107); Creatinine, Serum 0.76 mg/dL (0.55-1.02); EST Glomerular Filtration Rate 82 mL/min (>60); Est Glom Filt Rate - Afr Amer 99 mL/min (>60); Estimated Creatinine Clearance 61.05 ml/min; Glucose 123 mg/dL (74-106); Magnesium 2.3 mg/dL (1.6-2.6); Potassium 3.5 mmol/L (3.5-5.1); Sodium Level 139 mmol/L (136-145)
[2019-08-10 17:05] VITALS: BP 121/59; PULSE 71; RESP 16; O2SAT 98
[2019-08-10 17:22] LABS: BNP,B-Type NATRIURETIC PEPTIDE 54.1 pg/mL (0-100)
[2019-08-10 18:19] VITALS: BP 137/71; PULSE 62; RESP 15; O2SAT 97
[2019-08-10 18:32] LABS: Erythrocyte Sedimentation Rate 10 mm/hr (0-30)
== END 2019-08-10 18:22 | disposition home or self-care (01) ==
PROVIDERS: Emergency Provider Emergency Medicine; PCP Internal Medicine
DX: R07.89 Other chest pain (principal); I10 Essential (primary) hypertension; I47.1 Supraventricular tachycardia; R06.02 Shortness of breath; R53.81 Other malaise
CPT/HCPCS: 71045; 71275; 80048; 83735; 83880; 84484; 85025; 85652; 93005; 99284; Q9967; A4216

== ENCOUNTER → 2020-01-12 10:53 | Outpatient (CLI) | payer MEDICARE, OTHER, SELFPAY ==
--- NOTE | 2020-01-12 11:00 | BD_ITS ---
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 COMPARISON: None. FINDINGS: Lumbar Spine (L1-L4): g/cm2 (0.810) / T-score (-3.2) / Z-score (-1.6) Findings are suggestive of osteoporosis with a high fracture risk. Left Femur Total: g/cm2 (0.837) / T-score (-1.4) / Z-score (-0.1) Left Femoral Neck: g/cm2 (0.767) / T-score (-1.9) / Z-score (-0.5) Right Femur Total: g/cm2 (0.780) / T-score (-1.8) / Z-score (-0.6) Right Femoral Neck: g/cm2 (0.793) / T-score (-1.8) / Z-score (-0.3) BD/Dexa Bone Density Study IMPRESSION: The patient is considered osteoporotic as outlined below according to World Rosalio Organization (WHO) criteria with a high fracture risk. Reference Information: The T-score is the number of standard deviations above or below the standard which is normal for young adults at their peak bone mineral density. The World Health Organization (WHO) interprets the T-scores as follows: Above -1 Normal bone density Between -1 and -2.5 Osteopenia Equal to / or below -2.5 Osteoporosis As a practical clinical guideline, osteopenia may be graded as follows: Mild -1 through -1.5 Moderate -1.6 through -2.0 Severe -2.1 through -2.4 The Z-score is the number of standard deviations above or below age-matched controls. A Z-score of less than -1.5 would be considered abnormal. References: 1. NIH Osteoporosis and Related Bone Diseases http://www.osteo.org 2. International Society for Clinical Densitometry http://www.iscd.org 3. National Osteoporosis Foundation http://www.nof.org Electronically Signed: Arnol Richardson, at 9:03 EDT , Service support ,
== END ==
PROVIDERS: PCP Internal Medicine; Referring Provider Internal Medicine; Visit Provider Internal Medicine
DX: M81.0 Age-related osteoporosis without current pathological fracture (principal)
CPT/HCPCS: 77080

== ENCOUNTER 2020-08-21 13:27 | Emergency (ER) | payer MEDICARE, SELFPAY ==
[2020-08-21 13:27] VITALS: BP 102/49; PULSE 177; RESP 16; TEMP 36.7; O2SAT 97; BMI 29.2
[2020-08-21 13:30] VITALS: BP 150/96; PULSE 164; RESP 21; O2SAT 99
[2020-08-21] MEDS: Adenosine 6 MG/2 ML Syringe IV (13:41)
[2020-08-21 13:45] VITALS: BP 136/78; PULSE 95; RESP 15; O2SAT 99
--- NOTE | 2020-08-21 13:53 | EKG12_ITS ---
Test Reason : SVT Blood Pressure : / mmHG Vent. Rate : 172 BPM Atrial Rate : 159 BPM P-R Int : 000 ms QRS Dur : 100 ms QT Int : 268 ms P-R-T Axes : 000 -11 081 degrees QTc Int : 453 ms Supraventricular tachycardia Marked ST abnormality, possible lateral subendocardial injury Abnormal ECG Confirmed by LAST TORRES, CARLOS ([id number]), scientific editor PATT SANCHEZ ([id number]) on 08/23/2020 12:44:45 PM Referred By: YO Confirmed By:CARLOS NI MD
[2020-08-21 13:54] VITALS: O2SAT 98
--- NOTE | 2020-08-21 13:54 | EKG12_ITS ---
Test Reason : CONVERTED Blood Pressure : / mmHG Vent. Rate : 087 BPM Atrial Rate : 087 BPM P-R Int : 142 ms QRS Dur : 074 ms QT Int : 374 ms P-R-T Axes : 063 -18 047 degrees QTc Int : 450 ms Normal sinus rhythm Normal ECG Confirmed by LAST TORRES, CARLOS ([id number]), acquisitions editor PATT SANCHEZ ([id number]) on 08/23/2020 12:45:00 PM Referred By: YO Confirmed By:CARLOS NI MD
[2020-08-21 14:02] LABS: Absolute Lymphocyte Count 2.88 X10^3/uL (0.83-4.51); Absolute Neutrophil Count 5.9 X10^3/uL (2.0-7.7); Basophil# 0.11 X10^3/uL; Basophil% 1.1 % (0-1); Eosinophil# 0.31 X10^3/uL; Eosinophils% 3.1 % (0-5); Hematocrit 44.3 % (37-47); Lymphocyte # 2.88 X10^3/ul (4.0); Lymphocyte % 28.6 % (19-41); Mean Corp Hgb Conc 33.9 g/dL (32-36); Mean Corpuscular Hgb 32.1 pg (27.0-32.0); Mean Corpuscular Volume 94.9 fL (81-99); Mean Platelet Vol. 10.2 fl (6.2-12.0); Monocyte% 7.9 % (0-10); NRBC Flagged by Analyzer 0 % (0-5); Neutrophil # 5.94 X10^3/uL (2.7-7.7); Neutrophil % 58.9 % (47-70); Platelet Count 312 K/mm3 (150-450); RBC Distribution Width CV 12.7 % (11.6-14.6); RBC Distribution Width SD 44.1 fl (35.1-43.9); Red Blood Count 4.67 M/mm3 (4.2-5.4); White Blood Count 10.1 K/mm3 (4.4-11.0)
[2020-08-21 14:09] LABS: Bacteria 0 SEEN /hpf (None Seen); Mucous, Urine 0 SEEN /hpf (<or=2+); White Blood Cells 0 SEEN /hpf (0-5)
[2020-08-21 14:11] LABS: Color, Urine Yellow (Yellow); Glucose, Dipstick Normal (Normal); Ketone-Dipstick Negative (Negative); Leukocyte Esterase-Dipstick Negative /ul (Negative); Nitrite-Dipstick Negative (Negative); Occult Blood-Urine 10 /ul (Negative); Protein-Dipstick Negative (Negative); Urine Bilirubin Dipstick Negative (Negative); Urine Clarity Clear (Clear); Urine Urobilinogen Normal (Normal)
[2020-08-21 14:16] LABS: ALB/GLOB Ratio 1.2 RATIO (0.9-2.4); AST(SGOT) 27 U/L (15-37); Alanine Aminotransfer ALT/SGPT 37 U/L (13-56); Albumin, Serum 4.2 g/dL (3.2-5.0); Alkaline Phosphatase 130 U/L (45-117); Anion Gap 9 (5-15); BUN 13 mg/dL (7-18); BUN/Creat Ratio 13.4 RATIO (10-20); Calcium,Total 9.6 mg/dL (8.5-10.1); Chloride 104 mmol/L (98-107); Creatinine, Serum 0.97 mg/dL (0.55-1.02); EST Glomerular Filtration Rate 61 mL/min (>60); Est Glom Filt Rate - Afr Amer 74 mL/min (>60); Estimated Creatinine Clearance 45.12 ml/min; Globulin 3.6 g/dL (2.2-4.2); Glucose 113 mg/dL (74-106); Potassium 3.5 mmol/L (3.5-5.1); Protein, Total 7.8 g/dL (6.4-8.2); Sodium Level 139 mmol/L (136-145)
[2020-08-21 14:32] VITALS: BP 134/82; PULSE 94; RESP 18; O2SAT 94
[2020-08-21 14:33] LABS: Red Blood Cells-Urine 0 SEEN /hpf (0-5); Squamous Epithelial Cells - UA 0 SEEN /hpf (5-10)
--- NOTE | 2020-08-21 15:08 | ED.DCSUM_ITS ---
- ER Visit Summary Date of Service: 08/21/20 Chief Complaint: Palpitations History of Present Illness: The patient is a 65 F who presents with palpitations that have been constant for the past hour. Patient states she feels like her heart is racing. Patient has a history of supraventricular tachycardia. Patient has had an ablation for that several years ago. Patient states she tried vagal maneuvers at home with no improvement. Patient states she took an extra dose of Cardizem with no improvement. Patient admits to some mild shortness of breath. Patient admits to some tightness in her chest. Patient denies any nausea or vomiting. Patient denies any diaphoresis. Physical Examination: Vital signs are stable except for tachycardia of 177. Patient is afebrile. Patient is in no acute distress. Oral mucosa is pink and moist. Neck is supple. Trachea is midline. There is no JVD noted. Heart was regular and tachycardic. Lungs are clear and equal bilaterally. Abdomen is soft. Bowel sounds are normal. There is no tenderness. There is no rebound or guarding noted. Skin is warm dry. Cranial nerves II through XII are intact. There are no focal motor or sensory deficits noted. Extremities are intact. There is no calf tenderness or edema. Test Results: EKG was obtained. On my interpretation, there is a supraventricular tachycardia with a rate of 172. There is some mild ST depression in the anterolateral leads. This is likely rate related. [place] was normal. QRS and QT intervals were normal. Repeat EKG was obtained. On my interpretation, this shows a normal sinus rhythm with a rate of 87. [place] was normal. NH interval, QRS interval, and QT interval were all normal. There is no ST or T wave changes. BC, comprehensive metabolic profile, troponin, and urinalysis were obtained and were all within normal limits. Emergency Department Course and Treatment: Patient was placed on a district manager major accounts sales. Patient was advised of the risks of adenosine. Patient states she has had this before. Patient was given 6 mg of adenosine. Patient converted to a normal sinus rhythm. Patient was feeling better on reevaluation. Patient had no further episodes of SVT here in the emergency department. Patient was instructed to follow-up with her flatwork folder in 3 to 5 days. Patient understood and was agreeable with the plan. All questions were answered. Disposition: Discharge home Impression: Supraventricular tachycardia This note was generated with [employer] software. It may contain incorrect words, spelling, and punctuation that were not noted in review of the chart prior to signing ED Disposition - Plan for ED Patient: Disposition: Home or Assisted Living Diagnosis: Supraventricular tachycardia Instructions: ED Palpitations, ED Tachycardia: PAT Referrals: Gladys Max MD [Primary Care Provider] - 3-5 Days Additional Instructions: Follow-up with your flatwork folder this week for further evaluation.
[2020-08-21 15:22] VITALS: BP 138/92; PULSE 86; RESP 17; O2SAT 96
== END 2020-08-21 15:22 | disposition home or self-care (01) ==
PROVIDERS: Emergency Provider Emergency Medicine; PCP Internal Medicine
DX: I47.1 Supraventricular tachycardia (principal); I10 Essential (primary) hypertension
CPT/HCPCS: 80053; 81001; 84484; 85025; 93005; 96374; 99284; J7030; A4216; J0153

== ENCOUNTER → 2020-11-07 12:20 | Outpatient (CLI) | payer MEDICARE, SELFPAY ==
--- NOTE | 2020-11-07 12:22 | EKG12_ITS ---
Test Reason : PRE OP Blood Pressure : / mmHG Vent. Rate : 072 BPM Atrial Rate : 072 BPM P-R Int : 136 ms QRS Dur : 074 ms QT Int : 390 ms P-R-T Axes : 067 004 057 degrees QTc Int : 427 ms Normal sinus rhythm Normal ECG Confirmed by JEREMIAS TORRES, MARKUS ([id number]), sound editor PATT SANCHEZ ([id number]) on 11/08/2020 9:11:26 AM Referred By: Antwon Simon Confirmed By:MARKUS MCDOWELL MD
[2020-11-07 13:37] LABS: Absolute Lymphocyte Count 2.03 X10^3/uL (0.83-4.51); Absolute Neutrophil Count 4.1 X10^3/uL (2.0-7.7); Basophil# 0.08 X10^3/uL; Basophil% 1.1 % (0-1); Eosinophil# 0.22 X10^3/uL; Eosinophils% 3.1 % (0-5); Hematocrit 40.7 % (37-47); Hemoglobin 13.9 g/dL (12.0-15.0); Lymphocyte # 2.03 X10^3/ul (0.83-4.51); Lymphocyte % 28.8 % (19-41); Mean Corp Hgb Conc 34.2 g/dL (32-36); Mean Corpuscular Hgb 31.6 pg (27.0-32.0); Mean Corpuscular Volume 92.5 fL (81-99); Mean Platelet Vol. 10.1 fl (6.2-12.0); Monocyte# 0.56 X10^3/uL; Monocyte% 7.9 % (0-10); NRBC Flagged by Analyzer 0 % (0-5); Neutrophil # 4.14 X10^3/uL (2.7-7.7); Neutrophil % 58.8 % (47-70); Platelet Count 318 K/mm3 (150-450); RBC Distribution Width CV 12.6 % (11.6-14.6); RBC Distribution Width SD 42.8 fl (35.1-43.9); White Blood Count 7.1 K/mm3 (4.4-11.0)
[2020-11-07 14:06] LABS: Anion Gap 6 (5-15); BUN 10 mg/dL (7-18); BUN/Creat Ratio 14.9 RATIO (10-20); Calcium,Total 9.4 mg/dL (8.5-10.1); Chloride 108 mmol/L (98-107); Creatinine, Serum 0.67 mg/dL (0.55-1.02); EST Glomerular Filtration Rate 93 mL/min (>60); Est Glom Filt Rate - Afr Amer 113 mL/min (>60); Glucose 82 mg/dL (74-106); Potassium 3.4 mmol/L (3.5-5.1); Sodium Level 140 mmol/L (136-145)
== END ==
PROVIDERS: PCP Internal Medicine; Referring Provider Specialist; Visit Provider Specialist
DX: Z01.818 Encounter for other preprocedural examination (principal)
CPT/HCPCS: 36415; 80048; 85025; 93005

== ENCOUNTER 2021-01-18 20:17 | Emergency (ER) | payer MEDICARE, SELFPAY ==
[2021-01-18 20:17] VITALS: PULSE 183; RESP 27; O2SAT 99
[2021-01-18 20:18] VITALS: BP 128/103; PULSE 182; RESP 23; TEMP 36.6; O2SAT 99; BMI 26.4
--- NOTE | 2021-01-18 20:22 | ED.RN ---
RN CALLED FOR EKG, PULLED OLD EKGS FOR
--- NOTE | 2021-01-18 20:26 | EKG12_ITS ---
Test Reason : REPEAT Blood Pressure : / mmHG Vent. Rate : 097 BPM Atrial Rate : 097 BPM P-R Int : 140 ms QRS Dur : 070 ms QT Int : 358 ms P-R-T Axes : 065 -18 048 degrees QTc Int : 454 ms Sinus rhythm with Fusion complexes Possible Left atrial enlargement Nonspecific ST abnormality Abnormal ECG Confirmed by JEREMIAS TORRES, MARKUS ([id number]), film or videotape editor PATT SANCHEZ ([id number]) on 01/22/2021 1:21:48 PM Referred By: IGNACIO Confirmed By:MARKUS MCDOWELL MD
--- NOTE | 2021-01-18 20:27 | EKG12_ITS ---
Test Reason : CP Blood Pressure : / mmHG Vent. Rate : 178 BPM Atrial Rate : 182 BPM P-R Int : 000 ms QRS Dur : 096 ms QT Int : 258 ms P-R-T Axes : 000 -13 076 degrees QTc Int : 444 ms Supraventricular tachycardia Nonspecific ST abnormality Abnormal ECG Confirmed by JEREMIAS TORRES, MARKUS ([id number]), graphics editor PATT SANCHEZ ([id number]) on 01/22/2021 1:22:27 PM Referred By: IGNACIO Confirmed By:MARKUS MCDOWELL MD
--- NOTE | 2021-01-18 20:27 | EDS_ITS ---
HPI History of Present Illness Chief Complaint: Palpitations Detail of Chief Complaint: SVT Informant: patient Onset/Context/Timing Onset: Today Context: Sudden Onset Narrative Narrative: Patient presents with an episode of SVT. She has history of similar and had an ablation a year and a half ago. Patient states she is scheduled to undergo another ablation. Approximate hour prior to arrival patient felt herself go into SVT. She tried her normal vagal maneuvers without improvement. She did have more dizziness and chest pressure with this episode than normal so she came in for evaluation. [facility] Medical History (Updated 01/18/21 @ 21:[address] Radha Granger MD) Anxiety and depression Dyslipidemia GERD (gastroesophageal reflux disease) Hiatal hernia Hypertension Non-ST elevation (NSTEMI) myocardial infarction Osteoporosis Paroxysmal supraventricular tachycardia Squamous cell cancer of buccal mucosa Home Medications paroxetine HCl 30 mg PO QHS 10/16/16 [History Last Taken 08/09/19] pantoprazole 40 mg tablet,delayed release 40 mg PO DAILY 05/13/19 [History Last Taken 08/10/19] zolpidem 10 mg tablet 10 mg PO QHS tab 05/13/19 [History Last Taken 08/09/19] buspirone 15 mg PO BID 01/18/21 [History Last Taken Unknown] diltiazem HCl [Tiadylt ER] 180 mg PO DAILY 01/18/21 [History Last Taken Unknown] flecainide 100 mg PO PRN PRN 01/18/21 [History Last Taken Unknown] losartan 25 mg PO DAILY 01/18/21 [History Last Taken Unknown] Allergy/AdvReac Type Severity Reaction Status Date / Time verapamil AdvReac dizziness Verified 01/18/21 20:18 Family History Mother CVA (cerebral vascular accident) Heart disease Father CVA (cerebral vascular accident) Heart disease Surgical History H/O right knee surgery H/O squamous cell carcinoma excision History of left heart catheterization (09/10/11) Social History Smoking Status: Never smoker ROS ROS ED Constitutional Constitutional ED: Denies chills or fever(s) Eyes Eyes: Denies change in vision ENT ENT ED: Denies sore throat Cardiovascular Cardiovascular: Reports chest pain, palpitations and racing heartbeat Respiratory/Chest Respiratory/Chest: Denies cough or dyspnea Gastrointestinal Gastrointestinal: Denies abdominal pain, diarrhea, nausea or vomiting Genitourinary Genitourinary ED: Denies dysuria Musculoskeletal Musculoskeletal: Denies back pain Integumentary Denies rash Neurologic Neurologic: Denies headache(s) or weakness Psychiatric Psychiatric: Denies anxiety or depression Endocrine Endocrinology: Denies polydipsia or polyuria Allergic/Immunologic Allergic/Immunologic ED: Denies urticaria EXAM Physical Exam Const Vital Signs: 01/18/21 20:17 01/18/21 20:18 01/18/21 20:22 Temperature 98 F Temperature Source Temporal Pulse Rate 183 H 182 H Respiratory Rate 27 H 23 H Respiratory Effort Short of Breath Respiratory Pattern Blood Pressure 128/103 H Blood Pressure Mean 111 Pulse Ox 99 99 Oxygen Delivery Method Nasal Cannula Nasal Cannula Oxygen Flow Rate (L/min) 3 3 01/18/21 20:28 01/18/21 21:42 Temperature Temperature Source Pulse Rate 88 Respiratory Rate 16 Respiratory Effort Normal Non-Labored Respiratory Pattern Normal Blood Pressure 114/68 Blood Pressure Mean 83 Pulse Ox 97 Oxygen Delivery Method Room Air Oxygen Flow Rate (L/min) Positive well nourished and well developed General Appearance ED: well developed HEENT Reports normocephalic and head/scalp atraumatic Eyes PERRL and EOMs intact bilaterally Neck supple Chest Wall inspection of chest normal and palpation of chest normal Resp normal respiratory effort and clear to auscultation bilaterally Cardio regular rhythm Rate: tachycardic GI normal to inspection, nondistended, normoactive bowel sounds Palpation: soft Extremity normal to inspection Neuro oriented x3 and no sensory deficits noted Sensorium / Orientation: alert Motor Exam: strength 5/5 throughout Psych Mood & Affect: anxious Skin no rashes or lesions noted MDM MDM MDM Narrative Medical decision making narrative: Patient seen on arrival to the emergency room. Heart rate in the 170s to 180s. Patient has had prior SVT and required conversion with adenosine. Patient given 6 mg of IV adenosine and converted to sinus rhythm. Labs and IV fluids are ordered. Lab Data Attestation: I reviewed the patient's lab results. Labs: Laboratory Results - last 24 hr 01/18/21 01/18/21 20:22 20:22 WBC 9.3 RBC 4.67 Hgb 15.0 Hct 42.9 MCV 91.9 MCH 32.1 H MCHC 35.0 RDW Std Deviation 41.9 RDW Coeff of Ryann 12.4 Plt Count 330 MPV 9.8 Immature Gran % (Auto) 0.300 Neut % (Auto) 39.0 L Lymph % (Auto) 48.6 H [place] % (Auto) 7.8 Eos % (Auto) 3.2 Baso % (Auto) 1.1 H Absolute Neuts (auto) 3.6 Absolute Lymphs (auto) 4.53 H Nucleated RBC % 0 Sodium 139 Potassium 3.7 Chloride 107 Carbon Dioxide 22.0 Anion Gap 10 BUN 10 Creatinine 0.95 Estim Creat Clear Calc 50.30 Est GFR (MDRD) Af Amer 76 Est GFR (MDRD) Non-Af 63 BUN/Creatinine Ratio 10.5 Glucose 139 H Calcium 9.5 Troponin I High Sens 12.6 TSH 2.58 Radiography Diagnostic Testing: Radiology Impression Chest X-Ray 01/18/21 20:40 IMPRESSION: No radiographic evidence of acute cardiopulmonary disease. at 2108 Reported and signed by: Robbie Landrum MD Electronically Signed: Robbie Landrum MD at 21:07 EDT Tel , Service support , EKG Initial EKG: Attestation: I personally reviewed and interpreted this EKG as follows: Interpretation: SVT (SVT at a rate of 178. Anterior lateral ST depression noted.) Follow-up EKG: Attestation: I personally reviewed and interpreted this EKG as follows: Interpretation: Sinus Rhythm (Sinus at 97. Minimal ST depression in the lateral leads, 1/2 mm.) Treatment and Re-Evaluation Comments:: Patient felt significantly improved after chemical cardioversion. Lab work is unremarkable. Patient is scheduled to undergo another cardiac ablation. 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 Discharge Plan Triage Chief Complaint: Palpitations ED Provider: Radha Granger Dx/Rx/DC Orders Clinical Impression: SVT (supraventricular tachycardia) Instructions: ED Understanding Supraventricular Tachycardia (SVT) Prescriptions: No Action zolpidem [Ambien] 10 mg tablet 10 mg PO QHS RF: 0 pantoprazole 40 mg tablet,delayed release (DR/EC) 40 mg PO DAILY RF: 0 paroxetine HCl 20 MG tablet 30 mg PO QHS RF: 0 diltiazem HCl [Tiadylt ER] 180 mg capsule,extended release 24 hr 180 mg PO DAILY RF: 0 losartan 25 mg tablet 25 mg PO DAILY RF: 0 flecainide 100 mg tablet 100 mg PO PRN PRN (Reason: svt) RF: 0 buspirone 15 mg tablet 15 mg PO BID RF: 0 Primary Care Provider: Gladys Max Referrals: Gladys Max MD [Primary Care Provider] - Activity Restrictions/Additional Instructions: Follow-up with your hat block bench hand as discussed. Disposition Disposition: Home, Self Care Discharge Date/Time: 01/18/21 21:43
[2021-01-18] MEDS: 0.9% Normal Saline 1,000 ML 150 ML IV (20:30)
[2021-01-18] MEDS: Adenosine 6 MG/2 ML Syringe IV (20:32)
[2021-01-18 20:35] LABS: Absolute Lymphocyte Count 4.53 X10^3/uL (0.83-4.51); Absolute Neutrophil Count 3.6 X10^3/uL (2.0-7.7); Basophil% 1.1 % (0-1); Eosinophils% 3.2 % (0-5); Hematocrit 42.9 % (37-47); Lymphocyte # 4.53 X10^3/ul (0.83-4.51); Lymphocyte % 48.6 % (19-41); Mean Corpuscular Hgb 32.1 pg (27.0-32.0); Mean Corpuscular Volume 91.9 fL (81-99); Mean Platelet Vol. 9.8 fl (6.2-12.0); Monocyte# 0.73 X10^3/uL; Monocyte% 7.8 % (0-10); NRBC Flagged by Analyzer 0 % (0-5); Neutrophil # 3.64 X10^3/uL (2.7-7.7); Platelet Count 330 K/mm3 (150-450); RBC Distribution Width CV 12.4 % (11.6-14.6); RBC Distribution Width SD 41.9 fl (35.1-43.9); Red Blood Count 4.67 M/mm3 (4.2-5.4); White Blood Count 9.3 K/mm3 (4.4-11.0)
--- NOTE | 2021-01-18 20:40 | RAD_ITS ---
EXAM: XR CHEST, 1 VIEW : 1955 CLINICAL INDICATION: CP TECHNIQUE: Frontal view of the chest. This report was created using [employer] report generation technology. COMPARISON: 08/10/2019 FINDINGS: LUNGS AND PLEURAL SPACES: Unremarkable. No consolidation or edema. No pneumothorax. No effusion. HEART: Unremarkable. Cardiac silhouette not enlarged. MEDIASTINUM: Central airways and mediastinal contour are unremarkable. BONES/JOINTS: Unremarkable. SOFT TISSUES: Unremarkable. RAD/Chest 1 View (Portable) IMPRESSION: No radiographic evidence of acute cardiopulmonary disease. at 2108 Reported and signed by: Robbie Landrum MD Electronically Signed: Robbie Landrum MD at 21:07 EDT Tel , Service support ,
[2021-01-18 21:10] LABS: Anion Gap 10 (5-15); BUN 10 mg/dL (7-18); BUN/Creat Ratio 10.5 RATIO (10-20); Calcium,Total 9.5 mg/dL (8.5-10.1); Chloride 107 mmol/L (98-107); Creatinine, Serum 0.95 mg/dL (0.55-1.02); EST Glomerular Filtration Rate 63 mL/min (>60); Est Glom Filt Rate - Afr Amer 76 mL/min (>60); Glucose 139 mg/dL (74-106); Potassium 3.7 mmol/L (3.5-5.1); Sodium Level 139 mmol/L (136-145); Thyroid Stim Hormone (TSH) 2.58 uIU/mL (0.358-3.74); Troponin-I HS 12.6 pg/mL (3.0-53.7)
[2021-01-18 21:42] VITALS: BP 114/68; PULSE 88; RESP 16; O2SAT 97
== END 2021-01-18 21:43 | disposition home or self-care (01) ==
PROVIDERS: Emergency Provider Emergency Medicine; PCP Internal Medicine
DX: I47.1 Supraventricular tachycardia (principal); F41.9 Anxiety disorder, unspecified; F32.9 Major depressive disorder, single episode, unspecified; I10 Essential (primary) hypertension; I25.2 Old myocardial infarction; K21.9 Gastro-esophageal reflux disease without esophagitis; Z79.899 Other long term (current) drug therapy
CPT/HCPCS: 71045; 80048; 84443; 84484; 85025; 93005; 96374; 99285; J7030; A4216; J0153